=== PATIENT | male | born 1975 | race Caucasian/White ===

== ENCOUNTER 2018-04-16 06:15 | Day surgery (SDC) | payer BC ==
[2018-04-16] MEDS ORDERED: PROPOFOL 200 MG INJ (07:00)
[2018-04-16] MEDS ORDERED: LIDOCAINE 1%/EPI 30 ML INJ (07:24)
[2018-04-16] MEDS ORDERED: BUPIVACAINE 0.25%/EPI (SDV) 10 ML INJ (07:24)
[2018-04-16] MEDS ORDERED: LIDOCAINE 2% (SDV) 5 ML INJ (07:27)
[2018-04-16] MEDS ORDERED: PROPOFOL 60 ML (07:27)
[2018-04-16] MEDS ORDERED: MIDAZOLAM 1 MG/ML 2 ML INJ (07:28)
[2018-04-16] MEDS ORDERED: CEFAZOLIN 1 GM INJ (07:28)
[2018-04-16] MEDS ORDERED: FENTAnyl 50 MCG/ML VIAL (07:28)
[2018-04-16] MEDS ORDERED: FENTAnyl 50 MCG/ML VIAL IV ×2 (07:30)
[2018-04-16] MEDS ORDERED: MEPERIDINE 25 MG INJ IV (07:30)
[2018-04-16] MEDS ORDERED: morphine (1 MG/ML) 10ML SYRINGE IV ×2 (07:30)
[2018-04-16] MEDS ORDERED: ONDANSETRON 4 MG INJ IV ×2 (07:30→08:30)
[2018-04-16] MEDS ORDERED: LABETALOL HCL 20MG INJ IV (07:30)
[2018-04-16] MEDS ORDERED: ALBUTEROL 0.083% (NEB) 2.5 MG/3 ML AMP HHN (07:30)
[2018-04-16] MEDS ORDERED: HYDROmorphONE 1 MG/5 ML IV SYRINGE IV ×2 (07:30)
[2018-04-16] MEDS ORDERED: OXYCODONE/ACETAMINOPHEN (5/325) TAB PO ×4 (07:30→08:30)
[2018-04-16] MEDS ORDERED: DIPHENHYDRAMINE 50 MG INJ IV (07:30)
[2018-04-16] MEDS: BUPIVACAINE 0.5%/EPI (SDV) 30 ML INJ INJ (08:00)
[2018-04-16] MEDS: LIDOCAINE 1%/EPI 30 ML INJ INJ (08:00)
[2018-04-16] MEDS ORDERED: morphine 2 MG INJ IV (08:30)
== END 2018-04-16 10:25 | disposition home or self-care (01) ==
LOC: SDS 06:15
DX: D17.1 Benign lipomatous neoplasm of skin and subcutaneous tissue of trunk (principal)
CPT/HCPCS: 11406; 88307